=== PATIENT | male | born 1990 | race Caucasian/White ===

== ENCOUNTER 2017-08-05 00:09 | Emergency (ER) | payer SELFPAY ==
[~2017-08-05 00:09] MED LIST: ETOD400T PO
[2017-08-05] MEDS ORDERED: ASPIRIN 81 MG CHEW TAB PO ONE (00:45)
[2017-08-05] MEDS ORDERED: ONDANSETRON HCL 4 MG/2 ML VIAL IV PUSH ONE (00:45)
[2017-08-05] MEDS ORDERED: MORPHINE SULFATE 4 MG/ML INJ IV PUSH ONE (00:45)
[2017-08-05] MEDS ORDERED: SODIUM CHLORIDE 0.9% FLUSH 10 ML FLUSH IVF PRN (00:45)
--- NOTE | 2017-08-05 01:01 | PD ---
HPI . Chest pain Chief Complaint: Alcohol/Drug Intoxication Time Seen by Provider: 00:41 Travel History International Travel<30 days: No Contact w/Intl Traveler<30days: No Traveled to known affect area: No History of Present Illness HPI This patient presents with chief complaint of left-sided chest pain which started immediately after shooting up cocaine 1-1.5 hours ago. He does state that his pain is getting better. He states the pain was associated with near syncope and nausea. He states the pain was severe but is improving. [facility] Past Medical History Medical History: Denies Significant Hx Diminished Hearing: No Immunizations Current: Yes Tetanus Vaccination: < 5 Years Influenza Vaccination: No Past Surgical History Surgical History: No Previous Surgery Social History Alcohol Use: Yes (12-pack/day) Tobacco Use: Yes Substance Use: Yes (DILAUDID, COCAINE) Allergies-Medications (Allergen,Severity, Reaction): Coded Allergies: No Known Allergies (Verified Adverse Reaction, Unknown, 08/05/17) Reported Meds & Prescriptions Reported Meds & Active Scripts Active No Active Prescriptions or Reported Medications Review of Systems Except as stated in HPI: all other systems reviewed are Neg General / Constitutional: No: Fever, Chills Cardiovascular: Positive: Chest Pain or Discomfort Respiratory: Positive: Shortness of Breath Gastrointestinal: Positive: Nausea Psychiatric: Positive: Substance Abuse Physical Exam Narrative GENERAL: Healthy-appearing young man in no acute distress. SKIN: warm/dry. No rash or lesions. His track barbosa do not look infected. HEAD: Normocephalic. Atraumatic. EYES: Pupils equal and round. No scleral icterus. No injection or drainage. ENT: No nasal bleeding or discharge. Mucous membranes pink and moist. NECK: Trachea midline. Full range of motion without pain.. CARDIOVASCULAR: Regular rate and rhythm. Heart sounds normal. RESPIRATORY: No accessory muscle use. Clear to auscultation. Breath sounds equal bilaterally. Chest wall nontender. GASTROINTESTINAL: Abdomen soft. Nontender. Bowel sounds present. Nondistended. MUSCULOSKELETAL: No obvious deformities. NEUROLOGICAL: Awake and alert. No obvious cranial nerve deficits. Motor grossly within normal limits. Normal speech. PSYCHIATRIC: Appropriate mood and affect; insight and judgment normal. Data Data Orders Orders Electrocardiogram (08/05/17 00:41) Basic Metabolic Panel (Bmp) (08/05/17 00:41) Complete Blood Count With Diff (08/05/17 00:41) Magnesium (Mg) (08/05/17 00:41) Troponin I (08/05/17 00:41) Chest, Single Ap (08/05/17 00:41) Ecg Monitoring (08/05/17 00:41) Iv Access Insert/Monitor (08/05/17 00:41) Oximetry (08/05/17 00:41) Aspirin Chew (Aspirin Chew) (08/05/17 00:45) Morphine Inj (Morphine Inj) (08/05/17 00:45) Sodium Chloride 0.9% Flush (Ns Flush) (08/05/17 00:45) Ondansetron Inj (Zofran Inj) (08/05/17 00:45) Labs Laboratory Tests Test 08/05/17 00:45 White Blood Count 7.3 TH/MM3 Red Blood Count 4.41 MIL/MM3 Hemoglobin 13.9 GM/DL Hematocrit 41.5 % Mean Corpuscular Volume 93.9 FL Mean Corpuscular Hemoglobin 31.4 PG Mean Corpuscular Hemoglobin Concent 33.5 % Red Cell Distribution Width 12.6 % Platelet Count 198 TH/MM3 Mean Platelet Volume 9.3 FL Neutrophils (%) (Auto) 78.0 % Lymphocytes (%) (Auto) 14.6 % Monocytes (%) (Auto) 7.0 % Eosinophils (%) (Auto) 0.1 % Basophils (%) (Auto) 0.3 % Neutrophils # (Auto) 5.7 TH/MM3 Lymphocytes # (Auto) 1.1 TH/MM3 Monocytes # (Auto) 0.5 TH/MM3 Eosinophils # (Auto) 0.0 TH/MM3 Basophils # (Auto) 0.0 TH/MM3 CBC Comment DIFF FINAL Differential Comment Blood Urea Nitrogen 10 MG/DL Creatinine 0.88 MG/DL Random Glucose 135 MG/DL Calcium Level 8.9 MG/DL Magnesium Level 1.9 MG/DL Sodium Level 139 MEQ/L Potassium Level 3.7 MEQ/L Chloride Level 104 MEQ/L Carbon Dioxide Level 25.9 MEQ/L Anion Gap 9 MEQ/L Estimat Glomerular Filtration Rate 103 ML/MIN Troponin I LESS THAN 0.02 NG/ML MDM Medical Decision Making Medical Screen Exam Complete: Yes Emergency Medical Condition: Yes Interpretation(s) EKG shows a sinus rhythm with a ventricular rate of 99. No acute ST segment elevation or depression noted. Differential Diagnosis Differential diagnosis of chest pain includes but is not limited to musculoskeletal pain, pulmonary embolism, acute coronary syndrome, pneumonia, pleurisy Narrative Course This patient presents with the chief complaint of chest pain associated with IV cocaine abuse. Last Impressions Chest X-Ray 08/05/17 0041 Signed Impressions: Service Date/Time: Saturday, August 05, 2017 00:57 - CONCLUSION: No evidence of acute cardiopulmonary disease. Kevin Barragan MD The chest x-ray was independently viewed by me. CBC & BMP Diagram 08/05/17 00:45 Calcium Level 8.9, Magnesium Level 1.9 trop < 0.02 No evidence of ACS. Will d/c. Diagnosis Primary Impression: Chest pain Qualified Codes: R07.9 - Chest pain, unspecified Additional Impression: Cocaine abuse Patient Instructions: Chest Pain (DC), Cocaine Abuse (DC), General Instructions Scripts No Active Prescriptions or Reported Meds Disposition: 01 DISCHARGE HOME Condition: Stable Yanet Gray MD Aug 05, 2017 01:01
[2017-08-05 01:04] LABS: AUTOMATED NEUTROPHIL # 5.7 TH/MM3 (1.8-7.7); BASOPHIL % 0.3 % (0.0-2.0); EOSINOPHIL % 0.1 % (0.0-4.0); HEMATOCRIT 41.5 % (39.0-51.0); HEMO FLAGS DIFF FINAL; LYMPH % 14.6 % (9.0-44.0); LYMPHOCYTE # 1.1 TH/MM3 (1.0-4.8); MEAN CELL VOLUME 93.9 FL (80.0-100.0); MEAN CORPUSCULAR HEMOGLOBIN 31.4 PG (27.0-34.0); MEAN CORPUSCULAR HGB CONC 33.5 % (32.0-36.0); PLATELET COUNT 198 TH/MM3 (150-450); RED BLOOD COUNT 4.41 MIL/MM3 (4.50-5.90); RED CELL DISTRIBUTION WIDTH 12.6 % (11.6-17.2); WHITE BLOOD COUNT 7.3 TH/MM3 (4.0-11.0)
--- NOTE | 2017-08-05 01:08 | RADRPT ---
EXAM DATE/TIME: 08/05/2017 00:57 [facility] COMPARISON: No previous studies available for comparison. INDICATIONS : Chest pain. MEDICAL HISTORY : None. SURGICAL HISTORY : None. ENCOUNTER: Initial ACUITY: 1 day PAIN SCORE: 10/10 LOCATION: Left chest FINDINGS: A single view of the chest demonstrates the lungs to be symmetrically aerated without evidence of mas s, infiltrate or effusion. The cardiomediastinal contours are unremarkable. Osseous structures are intact. CONCLUSION: No evidence of acute cardiopulmonary disease. Kevin Barragan MD on August 05, 2017 at 1:06 Board Certified Radiologist. This report was verified electronically.
[2017-08-05 01:18] LABS: ANION GAP 9 MEQ/L (5-15); BICARBONATE 25.9 MEQ/L (21.0-32.0); BLOOD UREA NITROGEN 10 MG/DL (7-18); CHLORIDE 104 MEQ/L (98-107); GLOMERULAR FILTRATION RATE 103 ML/MIN (>89); MAGNESIUM 1.9 MG/DL (1.5-2.5); POTASSIUM 3.7 MEQ/L (3.5-5.1); SODIUM (NA) 139 MEQ/L (136-145)
--- NOTE | 2017-08-05 09:14 | EKG ---
Date Performed: 08/05/2017 Time Performed: 00:19:39 PTAGE: 27 years EKG: Sinus rhythm NORMAL ECG NO PREVIOUS TRACING DOCTOR: Jose Pena Interpretating Date/Time 08/05/2017 09:11:39
== END 2017-08-05 02:00 | disposition home or self-care (01) ==
LOC: NEPC 00:09
DX: R07.9 Chest pain, unspecified (principal); F14.10 Cocaine abuse, uncomplicated; R55 Syncope and collapse; R11.0 Nausea; Z72.0 Tobacco use
CPT/HCPCS: 71010; 80048; 83735; 84484; 85025; 93005; 96374; 96375; 99285; J2270; J2405